=== PATIENT | male | born 1965 | race Caucasian/White ===

== ENCOUNTER 2025-02-12 20:35 | Emergency (ER) | payer BC, SELFPAY ==
[~2025-02-12 20:35] MED LIST: Iopamidol 370 76% 100 ML VIAL ONE
[2025-02-12] MEDS ORDERED: Pantoprazole 40 MG VIAL ONE (20:57)
[2025-02-12] MEDS ORDERED: Ondansetron PF 4 MG/2 ML Vial ONE (20:57)
[2025-02-12 21:11] LABS: #Basophils 0.2 thou/uL (0.0-0.2); #Eosinophils 0.1 thou/uL (0.0-0.7); #Lymphocytes 2.5 thou/uL (1.20-3.40); #Monocytes 1.4 thou/uL (0.11-0.59); #Neutrophils 7.0 thou/uL (1.40-6.50); %Basophils 1.4 % (0.0-1.0); %Eosinophils 0.7 % (0.0-10.0); %Lymphocytes 22.4 % (21.0-51.0); %Monocytes 12.3 % (0.0-10.0); %Neutrophils 63.3 % (42.0-75.0); Hematocrit 50.4 % (42.0-52.0); Hemoglobin 17.9 g/dL (14.0-18.0); Mean Corpuscular Hemoglobin 30.2 pg (27.0-31.0); Mean Corpuscular Volume 85.3 fl (78.0-98.0); Platelet Count 248 10x3/uL (130-400); Red Blood Cell (RBC) Count 5.92 mill/uL (4.70-6.10); White Blood Cell (WBC) Count 11.1 10x3/uL (4.8-10.8)
[2025-02-12 21:27] LABS: Troponin I Less than 0.010 ng/mL (< 0.028)
[2025-02-12 21:32] LABS: ALT (SGPT) 56 U/L (Less than 45); AST (SGOT) 47 U/L (11-34); Albumin 5.0 g/dL (3.1-4.5); Alkaline Phosphatase 61 U/L (40-110); Anion Gap 23 mmol/L (10-20); BUN (Urea Nitrogen) 20 mg/dL (8.4-25.7); Bilirubin, Total 1.4 mg/dL (0.3-1.2); Calc. Creatinine Clearance 0 mL/min (70-130); Calcium 10.5 mg/dL (7.8-10.44); Carbon Dioxide 19 mmol/L (22-29); Chloride 101 mmol/L (98-107); Globulin 3.8 g/dL (2.4-3.5); Glucose 145 mg/dL (70-105); Lipase 41 U/L (8-78); Potassium 4.2 mmol/L (3.5-5.1); Sodium 139 mmol/L (136-145)
[2025-02-12] MEDS ORDERED: HYDROmorphone 0.5 MG/0.5 ML SYRINGE ONE (22:02)
[2025-02-12] MEDS ORDERED: Mag-Al Plus 1200/1200/120 MG (30 mL) UDCUP ONE (23:32)
[2025-02-12] MEDS ORDERED: Sucralfate 1 GM TAB ONE (23:32)
== END 2025-02-12 23:39 | disposition home or self-care (01) ==
LOC: NAV ERS 20:35
DX: K29.00 Acute gastritis without bleeding (principal); N28.1 Cyst of kidney, acquired; R73.9 Hyperglycemia, unspecified
CPT/HCPCS: 74177; 80053; 80307; 83690; 84484; 85025; 93005; 94760; 96361; 96374; 96375; J1171; J2270; J2405; J2470; Q9967